=== PATIENT | female | born 1975 | race Caucasian/White ===

== ENCOUNTER 2018-01-22 08:50 | Emergency (ER) | payer SELFPAY ==
[~2018-01-22] VITALS: Ht 154.9 cm; Wt 68.0 kg
[~2018-01-22 08:50] MED LIST: DICY1TAB26 PO; ERYT.5%O LEFT EYE; LOMO PO; Z.0.NO CURRENT MEDS; ZOFR4TAB3 SL
[2018-01-22 08:57] VITALS: BP 143/85; PULSE 82; RESP 17; TEMP 97.8; O2SAT 99
--- NOTE | 2018-01-22 09:20 | PD ---
HPI Chief Complaint: OD/ Ingestion Time Seen by Provider: 08:58 Travel History International Travel<30 days: No Contact w/Intl Traveler<30days: No Traveled to known affect area: No History of Present Illness HPI The patient is a 42-year-old female who presents to the emergency department via EMS after she was found unresponsive in her car. The patient was found unresponsive and administered Narcan 2 mg IM. The patient became awake and alert. Upon arrival the patient is awake, alert, oriented, and has no physical complaints. She does admit to injecting heroin intravenously earlier today. She does have a history of IV drug use for approximately 1 year , denies any previous history of overdose. Symptoms were severe, alleviated with Narcan. She denies any nausea, vomiting, piloerection, or diarrhea. She is currently asymptomatic. She denies any concurrent alcohol use or other illicit drug use. PFSH Past Medical History Arthritis: No Asthma: No Autoimmune Disease: No Blood Disorders: No Anxiety: Yes Depression: Yes Heart Rhythm Problems: No Cancer: No Cardiac Catheterization: No Cardiovascular Problems: No High Cholesterol: Yes Chemotherapy: No Chest Pain: No Congestive Heart Failure: No COPD: No Cerebrovascular Accident: No Diabetes: No Diminished Hearing: No Endocrine: No GERD: No Glaucoma: No Genitourinary: No Headaches: Yes Hepatitis: No Hiatal Hernia: No Hypertension: No Immune Disorder: No Kidney Stones: No Musculoskeletal: No Neurologic: No Psychiatric: Yes Reproductive: No Respiratory: No Immunizations Current: Yes Migraines: Yes Myocardial Infarction: No Radiation Therapy: No Renal Failure: No Seizures: No Sickle Cell Disease: No Thyroid Disease: No Ulcer: No Tetanus Vaccination: > 5 Years Influenza Vaccination: No ?: Not LMP: 01/17/18 : 5 Para: 5 Tubal Ligation: Yes Past Surgical History Abdominal Surgery: No AICD: No Appendectomy: No Arteriovenous Shunt: No Cardiac Surgery: Yes Cholecystectomy: No Coronary Artery Bypass Graft: No Ear Surgery: No Endocrine Surgery: No Eye Surgery: No Genitourinary Surgery: No Gynecologic Surgery: Yes Insulin Pump: No Joint Replacement: No Oral Surgery: Yes (TONSILLECTOMY) Pacemaker: No Thoracic Surgery: No Tonsillectomy: Yes Other Surgery: Yes Family History Family Myocardial Infarction: Yes Social History Alcohol Use: No Tobacco Use: Yes (1/2 PPD) Substance Use: Yes (HEROIN) Allergies-Medications (Allergen,Severity, Reaction): Coded Allergies: Sulfa (Sulfonamide Antibiotics) (Verified Allergy, Intermediate, RASH, 01/22) sulfamethoxazole (Verified Allergy, Unknown, RASH, 01/22/18) trimethoprim (Verified Allergy, Unknown, RASH, 01/22/18) Reported Meds & Prescriptions Reported Meds & Active Scripts Active No Active Prescriptions or Reported Medications Review of Systems Except as stated in HPI: all other systems reviewed are Neg General / Constitutional: No: Fever Cardiovascular: No: Chest Pain or Discomfort Respiratory: No: Shortness of Breath Gastrointestinal: No: Nausea, Vomiting, Diarrhea, Abdominal Pain Psychiatric: Positive: Substance Abuse (Heroin use) Physical Exam Narrative GENERAL: Awake, alert, 42-year-old female who appears her stated age and is in no acute respiratory distress. SKIN: Focused skin assessment warm/dry. HEAD: Atraumatic. Normocephalic. EYES: Pupils equal and round. 4 mm bilateral and reactive. EOMs are intact. ENT: No nasal bleeding or discharge. Mucous membranes pink and moist. NECK: Trachea midline. No JVD. CARDIOVASCULAR: Regular rate and rhythm. No murmur appreciated. Heart rate in the 90s. RESPIRATORY: No accessory muscle use. Clear to auscultation. Breath sounds equal bilaterally. MUSCULOSKELETAL: No obvious deformities. No clubbing. No cyanosis. No edema. NEUROLOGICAL: Awake and alert. No obvious cranial nerve deficits. Motor grossly within normal limits. Normal speech. Nonfocal. Oriented 4. PSYCHIATRIC: Appropriate mood and affect; insight and judgment normal. Data Data Last Documented VS Vital Signs Date Time Temp Pulse Resp B/P (MAP) Pulse Ox O2 Delivery O2 Flow Rate FiO2 01/22/18 12:39 80 17 118/70 (86) 98 Room Air 01/22/18 08:57 97.8 Orders Orders Electrocardiogram (01/22/18 08:58) [facility] Medical Decision Making Medical Screen Exam Complete: Yes Emergency Medical Condition: Yes Medical Record Reviewed: Yes Interpretation(s) EKG reveals normal sinus rhythm with a rate of 79. Differential Diagnosis Differential diagnosis includes heroin overdose, aspiration, hypoxia, accidental overdose, intentional overdose. Narrative Course The patient was placed on cardiac telemetry monitoring and continuous pulse oximetry monitoring. I had a discussion with the patient regarding the need to be observed for 4 hours as heroin's half-life is greater than the half-life of Narcan. The patient agrees and understands. She will be placed on pulse oximetry monitoring. If there is no further hypoxia and she is awake and alert and oriented on rechecks every 30 minutes 4 hours she will be discharged. She is advised to decrease heroin use and follow-up in [facility]. The patient was reevaluated several times, had no evidence of hypoxia. The patient did not need oxygen therapy or Narcan, therefore, will be discharged. Diagnosis Primary Impression: Accidental heroin overdose Qualified Codes: T40.1X1A - Poisoning by heroin, accidental (unintentional), initial encounter Patient Instructions: General Instructions Additional Instructions: Stop using heroin if possible. Follow-up with your primary physician. Return if symptoms worsen or progress. Med/Other Pt SpecificInfo: No Change to Meds Scripts No Active Prescriptions or Reported Meds Disposition: 01 DISCHARGE HOME Condition: Stable Luis Carlos Stewart MD January 22, 2018 09:20
[2018-01-22 12:39] VITALS: BP 118/70; PULSE 80; RESP 17; O2SAT 98
--- NOTE | 2018-01-22 15:30 | EKG ---
Date Performed: 01/22/2018 Time Performed: 08:58:10 PTAGE: 42 years EKG: Sinus rhythm POSSIBLE LEFT ATRIAL ENLARGEMENT POSSIBLE RIGHT VENTRICULAR CONDUCTION DELAY SEPTAL MYOCARDIAL INFAR CTION ABNORMAL ECG PREVIOUS TRACING : 06/17/2012 05.46 Since the prior tracing, the ectopic atrial rhythm has reso lved, and there is has been an overall increase in the precordial voltage, but otherwise no significa nt serial change. DOCTOR: Christa Bearden Interpretating Date/Time 01/22/2018 15:28:51
== END 2018-01-22 13:56 | disposition home or self-care (01) ==
LOC: NEPE 08:50
DX: T40.1X1A Poisoning by heroin, accidental (unintentional), initial encounter (principal); F17.200 Nicotine dependence, unspecified, uncomplicated; R94.31 Abnormal electrocardiogram [ECG] [EKG]
CPT/HCPCS: 93005; 99283